=== PATIENT | male | born 2000 | race African-American/Black ===

== ENCOUNTER 2024-06-10 10:00 | Emergency (ER) | payer OTHER ==
[~2024-06-10] VITALS: Ht 182.9 cm; Wt 106.6 kg
[2024-06-10] MEDS: CYCLOBENZAPRINE 10MG TABLET PO ONE (13:21)
[2024-06-10] MEDS: KETOROLAC 60MG 2ML VIAL IM ONE (13:24)
[2024-06-10] MEDS ORDERED: CYCL5TAB4 PO (13:44)
[2024-06-10] MEDS ORDERED: IBUP-1022 PO (13:44)
[2024-06-10 14:01] VITALS: BP 142/67; TEMP 98; O2SAT 97
== END 2024-06-10 14:03 | disposition home or self-care (01) ==
LOC: M ED 10:00
DX: S39.012A Strain of muscle, fascia and tendon of lower back, initial encounter (principal); M62.830 Muscle spasm of back; X50.0XXA Overexertion from strenuous movement or load, initial encounter; G40.909 Epilepsy, unspecified, not intractable, without status epilepticus; Z88.8 Allergy status to other drugs, medicaments and biological substances; Z79.1 Long term (current) use of non-steroidal anti-inflammatories (NSAID); Z79.899 Other long term (current) drug therapy; Y92.89 Other specified places as the place of occurrence of the external cause; Y93.54 Activity, bowling; Y99.9 Unspecified external cause status
CPT/HCPCS: 96372; 99283; J1885